=== PATIENT | female | born 1975 | race Caucasian/White ===

== ENCOUNTER 2016-10-02 00:29 | Emergency (ER) | payer SELFPAY ==
[~2016-10-02] VITALS: Ht 167.6 cm; Wt 97.5 kg
--- OUTSIDE RECORDS SUMMARY | 2016-10-02 00:34 | XMS REPORT | Referral Summary ---
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 Role Phone No PCP, Pt States Primary Care Physician [phone] Encounter VC Date(s): 02/17/15 - 02/17/15 [facility] [address] [place] [address] [phone] Discharge Diagnosis: Left leg cellulitis Discharge Disposition: 01-Home or Self Care Attending Physician: Demetrius Baltazar MD Admitting Physician: Demetrius Baltazar MD Vital Signs Most recent to 1 oldest [Reference Range]: Temperature Oral 36.7 degC [35.8-37.3 degC] (02/17/15 3:50 PM) Peripheral Pulse 119 bpm Rate [60-100 bpm] *HI* (02/17/15 4:17 PM) Respiratory Rate 16 br/min [14-20 br/min] (02/17/15 4:17 PM) Blood Pressure 137/89 mmHg [90-140/60-90 mmHg] (02/17/15 4:17 PM) SpO2 97 % (02/17/15 4:17 PM) Problem List Condition Effective Dates Status Health Status Informant Tobacco Active patient user(Confirmed) Allergies, Adverse Reactions, Alerts Substance Reaction Severity Status penicillin Hives Active Medications clindamycin 300 mg oral capsule 300 mg 1 caps, Oral, q8hr, X 10 days, # 30 caps, 0 Refill(s) Start Date: 02/17/15 Stop Date: 02/27/15 Status: Ordered Results No data available for this section Immunizations No data available for this section Procedures No data available for this section Social History Social History Type Response Smoking Status Current every day smoker; Type: Cigarettes; Tobacco use per day: Pack Assessment and Plan No data available for this section
--- OUTSIDE RECORDS SUMMARY | 2016-10-02 00:34 | XMS REPORT | Referral Summary ---
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 Role Phone No PCP, Pt States Primary Care Physician [phone] Encounter VC Date(s): 02/17/15 - 02/17/15 [facility] [address] [place] [address] [phone] Discharge Diagnosis: Left leg cellulitis Final: Cellulitis of left lower limb Discharge Disposition: 01-Home or Self Care Attending Physician: Jim Munguia MD Admitting Physician: Jim Munguia MD Vital Signs Most recent to 1 [...] Reaction Severity Status penicillin Hives Active Medications No data available for this section Results No data available for this section Immunizations No data available for this section Procedures No data available for this section Social History Social History Type Response Smoking Status Current every day smoker; Type: Cigarettes; Tobacco use per day: Pack Assessment and Plan No data available for this section
--- OUTSIDE RECORDS SUMMARY | 2016-10-02 00:35 | XMS REPORT | Continuity of Care Document ---
Author Author [facility] Organization [facility] Address Unknown Phone Unavailable Allergies Medications Problems Date Dx Coded Attending Type Code Diagnosis Diagnosed By 11/03/2012 Vadim Choe DO Final 682.6 LEG CELLULITIS 11/03/2012 Vadim Choe DO Admitting 729.5 PAIN IN LIMB Procedures Results Encounters ACCT No. Visit Date/Time Discharge Status Pt. Type Provider Facility Loc./Unit Complaint [id number] 11/03/2012 00:46:00 2012 02:50:00 DIS Emergency Vadim Choe DO [facility] [address] [facility]
[2016-10-02 00:41] VITALS: Ht 167.6 cm; Wt 97.5 kg
[2016-10-02] MEDS ORDERED: NO MEDS (01:13)
--- NOTE | 2016-10-02 02:43 | ERPDOC ---
Departure Disposition Decision Date: October 02, 2016 Disposition Decision Time: 02:44 Disposition: 01 DISCHARGED HOME, SELF-CARE Impression Impression Impression: Primary Impression: Cellulitis of leg, left Severity: Moderate Condition: Improved Seen By: Physician only Patient Instructions: Cellulitis (ED) Problems/Meds/Labs Reviewed?: Yes Medications reviewed and manag: Yes Additional Instructions: Keflex 500 mg, one tablet 3 times daily for 10 days Bactrim DS, one tablet twice daily for 10 days Use ibuprofen and or milligrams every 6-8 hours for pain control Keep leg elevated as much as possible for swelling See your doctor on Friday if not improving Follow up care ordered?: Yes Mental Status: Alert, Oriented Scripts Sulfamethoxazole/Trimethoprim (Bactrim Ds Tablet) 1 Each Tablet 1 TAB PO BID, #20 TAB Take 1 tablet, by mouth, 2 times a day. Prov: LINDA MICHAEL MD 10/02/16 Cephalexin (Keflex) 500 Mg Capsule 500 MG PO TID, #30 CAP Prov: LINDA MICHAEL MD 10/02/16 HPI - Skin General General Chief Complaint: Skin Rash/Abscess Stated Complaint: LEG CELLULITIS Time Seen by Provider: 02:39 Source: patient Exam Limitations: no limitations HPI - Skin General Initial Comments Recurrence of right lower leg cellulitis. Has had this several times in the past. Began after an open wound to the leg. This episode began yesterday and seems to be progressing rapidly. Tried a year old antibiotic yesterday but not change. Occurred At: home Onset: Rapid Severity: moderate Location: extremities 1 - Moderate diffuse redness, warmth, and mild tenderness Possible Cause: no cause identified Associated Symptoms: DENIES: blisters, change in skin texture, edema, fever, flushing, headache, hives, jaundice, malaise, nasal congestion, numbness, pallor , paresthesia, rash, sore throat, swelling/mass/lumps, tingling Hx of Similar Symptoms: Yes Allergies: Coded Allergies: Penicillins (Verified Allergy, Mild, RASH, 10/02/16) Past History Patient Medical History Problem List Updates: Recurrent lower extremity cellulitis Surgical History Denies Surgeries Social History Smoking Status: Never smoker Does patient use chewing tobac: No Second Hand Exposure: No Substance Use Type: does not use Alcohol Intake: none Review of Systems Constitutional Constitutional: DENIES: appetite decrease, appetite increase, chills, dizziness , fever, weakness ENMT Ears: DENIES: pain Hearing: DENIES: hearing loss, tinnitus Balance: DENIES: vertigo Mouth/Throat: DENIES: change in swallowing, change in voice, hoarsness, painful swallowing, sore throat Cardiovascular Cardiac: DENIES: chest pain, dyspnea on exertion Rhythm/Rate: DENIES: irregular beat, palpitations, tachycardia Vascular: DENIES: pedal edema Pulmonary Respiratory: DENIES: cough, dyspnea, pleuritic chest pain GI Upper Abdomen: DENIES: dysphagia, heartburn/indigestion, nausea, pain, vomiting Lower Abdomen: DENIES: blood in stool, constipation, diarrhea, pain General: DENIES: burning, dysuria, frequency, pain, urgency Musculoskeletal General: pain, DENIES: cramps, joint pain, joint swelling, weakness Integumentary Skin: DENIES: rash, sores Neurological General: DENIES: headache, numbness, tingling, vertigo, weakness Psychiatric Psychiatric: DENIES: anxiety, depression, nervousness Physical Exam General General Nourishment: well nourished, well developed, appears stated age, no acute distress General Body Habitus: well groomed Vitals and Pain First Documented Vital Signs Date Time Temp Pulse Resp B/P Pulse Ox O2 Delivery O2 Flow Rate FiO2 10/02/16 00:41 97 18 128/74 98 Room Air Weight: Kilograms: 97.500 Height (feet): 5 Height (inches): 6.00 Triage Pain Scale: RN VS reviewed by Provider: Yes Normal Exams: Head: Normocephalic w/o trauma Eyes: Pupils are PERRLA w/ EOMI, No scleral icterus, irritation, or foreign bodies noted ENMT: No facial trauma, nasal exudates, pharyngeal erythema, or exudates are noted Neck: Full range of motion, without adenopathy, JVD, bruits or thyromegaly Chest/Resp: Clear all car[place], with good airflow, and symmetry bilaterally CV: Regular rate and rhythm, without murmur or gallop, Pulses 2+ all extremities, capillary refill, <2 seconds all ext., no pedal edema noted Abdomen: Bowel sounds positive, soft, non-tender, non-distended, no hepatosplenomegaly, masses or bruits noted Lymphatic: No lymphadenopathy, or lymphedema noted Musculoskeletal: No tenderness, or deformity noted, good range of motion, all extremities Neurologic: Patient is alert, and oriented, cranial nerves, motor/sensory/ cerebellar, exams w/o gross deficits, to observation Psychiatric: Patient exhibits, appropriate attention, emotion and affect Integumentary (brief) Integumentary Brief: FOUND: dry, other (urgent area of erythema and warmth consistent with cellulitis to the right lateral lower extremity as diagrammed. Patient has no calf tenderness, good capillary refill, and is neurovascularly intact.), pink, warm Progress Progress Progress She appears to have recurrent cellulitis of the lower extremity. She is started on Keflex 3 times daily, Bactrim twice daily, and is instructed to follow-up with her primary care physician later this week if not improving. LINDA MICHAEL MD October 02, 2016 02:43
[2016-10-02] MEDS ORDERED: CEPHALEXIN 500 MG CAPSULE PO ONE (02:45)
[2016-10-02] MEDS ORDERED: CEPH-583 PO (02:46)
[2016-10-02] MEDS ORDERED: SULF1TAB42 PO (02:46)
[2016-10-02 02:55] VITALS: BP 123/66; PULSE 78; RESP 18; TEMP 97.5; O2SAT 99
--- NOTE | 2016-10-02 02:55 | NUR ---
depart pt is given dismissal instructions with verbal understanding. pt given script. pt leaves ambulatory to ed exit
--- OUTSIDE RECORDS SUMMARY | 2016-10-02 03:10 | XMS REPORT | Continuity of Care Document ---
Author Author [facility] Organization [facility] Address Unknown Phone Unavailable Allergies Medications Problems Date Dx Coded Attending Type Code Diagnosis Diagnosed By 11/03/2012 Vadim Choe DO Final 682.6 LEG CELLULITIS 11/03/2012 Vadim Choe DO Admitting 729.5 PAIN IN LIMB Procedures Results Encounters ACCT No. Visit Date/Time Discharge Status Pt. Type Provider Facility Loc./Unit Complaint [id number] 11/03/2012 00:46:00 2012 02:50:00 DIS Emergency Vadim Choe DO [facility] on [address] [facility]
[2016-10-02] MEDS ORDERED: SULFAMETHOXAZOLE/TMP 800mg/160mg TABLET PO ONE (09:00)
== END 2016-10-02 02:55 | disposition home or self-care (01) ==
LOC: ED 00:29
DX: L03.116 Cellulitis of left lower limb (principal)